=== PATIENT | female | born 1950 | race Asian ===

== ENCOUNTER 2023-12-03 12:58 | Inpatient (IN) | payer OTHER ==
[~2023-12-03] VITALS: Ht 167.6 cm; Wt 42.2 kg
[2023-12-03 13:05] VITALS: BP 109/62; PULSE 88; RESP 19; TEMP 98; O2SAT 96
[2023-12-03 14:11] LABS: BASOPHILS % (AUTO) 0.8 % (0.0-2.0); EOSINOPHILS # (AUTO) 0.2 K/uL (0-0.4); EOSINOPHILS % (AUTO) 3.2 % (0.0-4.0); HEMATOCRIT 36.2 % (36-48); HEMOGLOBIN 13.1 g/dL (12.0-16.0); LYMPHOCYTES # (AUTO) 2.2 K/uL (2.5-16.5); LYMPHOCYTES % (AUTO) 37.9 % (20.5-51.1); MEAN CORPUSCULAR HEMOGLOBIN 31 pg (27-31); MEAN CORPUSCULAR HGB CONC 36 g/dL (33-37); MEAN CORPUSCULAR VOLUME 85.7 fL (80-94); MONOCYTES # (AUTO) 0.4 K/uL (0.8-1.0); MONOCYTES % (AUTO) 6.6 % (1.7-9.3); NEUTROPHILS % (AUTO) 51.5 % (42.2-75.2); PLATELET COUNT (AUTO) 291 K/uL (140-450); RED BLOOD CELL COUNT(AUTO) 4.23 MIL/uL (4.20-5.40); RED CELL DISTRIBUTION WIDTH 13.7 % (11.6-13.7); WHITE BLOOD COUNT (AUTO) 5.9 K/uL (4.8-10.8)
[2023-12-03 14:21] LABS: ANION GAP 7.7 (8-16); CALCIUM 8.6 mg/dL (8.5-10.1); CARBON DIOXIDE 30.2 mmol/L (21-32); CHLORIDE 105 mmol/L (98-107); CREATININE 0.5 mg/dL (0.6-1.3); GLUCOSE 101 mg/dL (74-106); SODIUM SERUM 140 mmol/L (136-145); UREA NITROGEN, BLOOD 4 mg/dL (7-18)
[2023-12-03 14:23] LABS: POTASSIUM 2.9 mmol/L (3.5-5.1)
[2023-12-03 14:32] LABS: LACTIC ACID 0.9 mmol/L (0.4-2.0)
[2023-12-03 14:38] LABS: FLU A ANTIGEN negative (NEGATIVE); FLU B ANTIGEN negative (NEGATIVE)
[2023-12-03] MEDS ORDERED: cefTRIAXone 1,000 MG VIAL ONE (14:44)
[2023-12-03] MEDS: cefTRIAXone 1,000 MG in DEXT 5% MINI-BAG PLUS 50 ML IV ONE (14:47)
[2023-12-03] MEDS: KCL 20 MEQ IN 100 mL PREMIX 100 ML IV ONE (14:51)
[2023-12-03] MEDS ORDERED: ONDANSETRON 4 MG/2 ML VIAL IVP PRN (15:05)
[2023-12-03] MEDS ORDERED: ACETAMINOPHEN 325 MG TAB PO PRN (15:05)
[2023-12-03] MEDS: NACL 0.9% 1,000 ML IV SCH (15:22)
[2023-12-03] MEDS: ASPIRIN 325 MG TAB PO ONE (15:23)
[2023-12-03 15:39] LABS: APPEARANCE,URINE SL CLOUDY (CLEAR); BILIRUBIN,URINE NEGATIVE (NEGATIVE); BLOOD, URINE 2+ (NEGATIVE); COLOR,URINE YELLOW (YELLOW); LEUKOCYTE ESTERASE ,URINE 2+ (NEGATIVE); NITRITE, URINE NEGATIVE (NEGATIVE); PROTEIN,URINE TRACE (NEGATIVE); UGLUCOSE NEGATIVE (NEGATIVE); UROBILINOGEN,URINE 0.2 EU/dL (0.2 - 1)
[2023-12-03 15:45] LABS: BACTERIA,URINE 2+ /HPF (None Seen); MUCUS,URINE None Seen /LPF (None Seen); SQUAMOUS EPITHELIAL CELL,UR 4-10 (MOD) /LPF (0-3 (FEW))
[2023-12-03 16:00] VITALS: BP 156/80; PULSE 89; PULSE 97; RESP 17; TEMP 98.3; O2SAT 96
[2023-12-03 16:19] VITALS: PULSE 97
[2023-12-03] MEDS: HYDROcodone/APAP 5/325 MG 1 TAB TAB PO PRN (17:04)
[2023-12-03 20:00] VITALS: BP_SYST 112; BP_SYST 118; BP_DIAS 70; BP_DIAS 74; PULSE 90; PULSE 96; RESP 16; RESP 17; TEMP 97.6; TEMP 98.2; O2SAT 97; O2SAT 98
[2023-12-04] VITALS (8 sets, daily range): BP systolic 126–159; BP diastolic 62–80; PULSE 78–108; RESP 18–19; TEMP 97.7–98.7; O2SAT 98–100
[2023-12-04 07:01] LABS: ANION GAP 10.7 (8-16); CALCIUM 8.8 mg/dL (8.5-10.1); CARBON DIOXIDE 28.5 mmol/L (21-32); CHLORIDE 101 mmol/L (98-107); CREATININE 0.5 mg/dL (0.6-1.3); GLUCOSE 95 mg/dL (74-106); POTASSIUM 3.2 mmol/L (3.5-5.1); SODIUM SERUM 137 mmol/L (136-145); UREA NITROGEN, BLOOD 4 mg/dL (7-18)
[2023-12-04 07:16] LABS: BASOPHILS % (AUTO) 0.5 % (0.0-2.0); EOSINOPHILS # (AUTO) 0.2 K/uL (0-0.4); EOSINOPHILS % (AUTO) 2.5 % (0.0-4.0); HEMATOCRIT 38.1 % (36-48); HEMOGLOBIN 13.8 g/dL (12.0-16.0); LYMPHOCYTES # (AUTO) 1.8 K/uL (2.5-16.5); LYMPHOCYTES % (AUTO) 27.7 % (20.5-51.1); MEAN CORPUSCULAR HEMOGLOBIN 31 pg (27-31); MEAN CORPUSCULAR HGB CONC 36 g/dL (33-37); MEAN CORPUSCULAR VOLUME 85.1 fL (80-94); MONOCYTES # (AUTO) 0.4 K/uL (0.8-1.0); MONOCYTES % (AUTO) 5.8 % (1.7-9.3); NEUTROPHILS # (AUTO) 4.1 K/uL (1.8-7.7); NEUTROPHILS % (AUTO) 63.5 % (42.2-75.2); PLATELET COUNT (AUTO) 338 K/uL (140-450); RED BLOOD CELL COUNT(AUTO) 4.48 MIL/uL (4.20-5.40); RED CELL DISTRIBUTION WIDTH 13.7 % (11.6-13.7); WHITE BLOOD COUNT (AUTO) 6.5 K/uL (4.8-10.8)
[2023-12-04] MEDS: POTASSIUM CHLORIDE 10 MEQ TABER PO SCH (08:35)
[2023-12-04] MEDS: ATORVASTATIN 20 MG TAB PO SCH (08:35)
[2023-12-04] MEDS: ECOTRIN 81 MG TABEC PO SCH (08:35)
[2023-12-04] MEDS: amLODIPine 5 MG TAB PO SCH (08:36)
[2023-12-04] MEDS ORDERED: ASPIRIN 81 MG TAB.CHEW PO SCH (09:00)
[2023-12-04] MEDS: LORazepam 2 MG/ML VIAL IVP PRN (22:27)
[2023-12-05] VITALS: BP 108/70; PULSE 80; RESP 16; TEMP 97.6; O2SAT 96
[2023-12-05 04:00] VITALS: BP 124/80; PULSE 86; RESP 16; TEMP 98; O2SAT 96
[2023-12-05 05:42] LABS: BASOPHILS % (AUTO) 0.6 % (0.0-2.0); EOSINOPHILS # (AUTO) 0.1 K/uL (0-0.4); EOSINOPHILS % (AUTO) 1.5 % (0.0-4.0); HEMOGLOBIN 14.3 g/dL (12.0-16.0); LYMPHOCYTES # (AUTO) 2.2 K/uL (2.5-16.5); LYMPHOCYTES % (AUTO) 30.1 % (20.5-51.1); MEAN CORPUSCULAR HEMOGLOBIN 30 pg (27-31); MEAN CORPUSCULAR HGB CONC 36 g/dL (33-37); MEAN CORPUSCULAR VOLUME 85.1 fL (80-94); MONOCYTES # (AUTO) 0.5 K/uL (0.8-1.0); MONOCYTES % (AUTO) 6.6 % (1.7-9.3); NEUTROPHILS # (AUTO) 4.4 K/uL (1.8-7.7); NEUTROPHILS % (AUTO) 61.2 % (42.2-75.2); PLATELET COUNT (AUTO) 395 K/uL (140-450); RED CELL DISTRIBUTION WIDTH 13.8 % (11.6-13.7); WHITE BLOOD COUNT (AUTO) 7.2 K/uL (4.8-10.8)
[2023-12-05 05:49] LABS: ANION GAP 9.6 (8-16); CALCIUM 8.9 mg/dL (8.5-10.1); CARBON DIOXIDE 29.2 mmol/L (21-32); CHLORIDE 102 mmol/L (98-107); CREATININE 0.5 mg/dL (0.6-1.3); GLUCOSE 100 mg/dL (74-106); POTASSIUM 3.8 mmol/L (3.5-5.1); SODIUM SERUM 137 mmol/L (136-145); UREA NITROGEN, BLOOD 5 mg/dL (7-18)
[2023-12-05 08:00] VITALS: BP 139/76; PULSE 104; PULSE 78; PULSE 94; RESP 18; TEMP 97.3; O2SAT 98; O2SAT 99
[2023-12-05] MEDS ORDERED: ATOR20TA40 PO (10:02)
[2023-12-05] MEDS ORDERED: ASPI-1856 PO (10:02)
[2023-12-05] MEDS ORDERED: AMLO-3 PO (10:02)
[2023-12-05 20:00] VITALS: BP 146/77; PULSE 84; RESP 18; TEMP 97.8; O2SAT 100
[2023-12-06 04:00] VITALS: BP 130/70; PULSE 89; RESP 18; TEMP 97.6; O2SAT 98
[2023-12-06 08:00] VITALS: PULSE 84; PULSE 94; RESP 18; O2SAT 100
[2023-12-06 13:35] VITALS: BP 114/69
== END 2023-12-06 15:20 | DRG 640 ==
LOC: MED 12:58 → MTU 15:05
PROVIDERS: ADMIT Family Medicine; ATTEND Family Medicine
DX: E87.6 Hypokalemia (principal); E43 Unspecified severe protein-calorie malnutrition; G93.41 Metabolic encephalopathy; N39.0 Urinary tract infection, site not specified; I69.354 Hemiplegia and hemiparesis following cerebral infarction affecting left non-dominant side; Z68.1 Body mass index [BMI] 19.9 or less, adult; Z20.822 Contact with and (suspected) exposure to COVID-19; I10 Essential (primary) hypertension; E78.5 Hyperlipidemia, unspecified
CPT/HCPCS: 36415; 71045; 80048; 81001; 83605; 83880; 84484; 85025; 87040; 87081; 87086; 96365; 96368; 99285; J0696; J2060; J3480; J7060

== ENCOUNTER 2023-12-14 12:39 | Emergency (ER) | payer OTHER ==
[~2023-12-14] VITALS: Ht 149.9 cm; Wt 40.8 kg
[~2023-12-14 12:39] MED LIST: AMLO-3 PO; ASPI-1856 PO; ATOR20TA40 PO
[2023-12-14 12:49] VITALS: BP 130/88; PULSE 110; RESP 18; TEMP 97.7; O2SAT 98
[2023-12-14] MEDS: KETOROLAC 30 MG/ML VIAL IM ONE (13:39)
[2023-12-14] MEDS ORDERED: ACET-10509 PO (15:03)
[2023-12-14] MEDS ORDERED: LID5T TP (15:03)
[2023-12-14 16:44] VITALS: BP 114/64; PULSE 103; RESP 16; TEMP 98.4; O2SAT 98
== END 2023-12-14 16:14 ==
LOC: MED 12:39
DX: M25.562 Pain in left knee (principal); M25.552 Pain in left hip; I10 Essential (primary) hypertension; Z86.73 Personal history of transient ischemic attack (TIA), and cerebral infarction without residual deficits; Z79.899 Other long term (current) drug therapy
CPT/HCPCS: 73502; 73562; 96372; 99284; J1885